=== PATIENT | female | born 1975 | race Caucasian/White ===

== ENCOUNTER 2023-06-28 19:41 | Emergency (ER) | payer OTHER, SELFPAY ==
[2023-06-28 19:46] VITALS: BP 161/79; PULSE 65; RESP 16; TEMP 36.2; O2SAT 98
--- NOTE | 2023-06-28 19:54 | ED.GENADULT ---
HPI - General Adult General Chief complaint: Upper Respiratory Infection Stated complaint: Headache/Dizziness/Sinus Pressure Source: patient Mode of arrival: ambulatory Limitations: no limitations History of Present Illness HPI narrative: Patient presents for evaluation of sick symptoms for last 2-3 days. She reports pressure behind both eyes and is wondering whether she has a sinus infection. Denies any discharge from the nares per se. She has a scratchy throat, an occasional cough, pressure in both ears with left worse than the right, and some body aches. No fever, chills, vomiting, diarrhea. Her also has similar symptoms. She does not smoke. She took Tylenol for symptoms which seemed to help. However she has recurrence of her symptoms shortly thereafter. Related Data Home Medications Medication Instructions Recorded Confirmed apixaban 5 mg tablet (Eliquis) mg 06/28/23 atorvastatin 40 mg tablet mg 06/28/23 flecainide 100 mg tablet mg 06/28/23 fluoxetine 40 mg capsule mg 06/28/23 losartan 25 mg tablet mg 06/28/23 metoprolol succinate 50 mg mg PO 06/28/23 tablet,extended release 24 hr Allergies Allergy/AdvReac Type Severity Reaction Status Date / Time doxycycline Allergy Unknown RASH Verified 06/11/19 11:27 Sulfa (Sulfonamide Allergy Unknown MOUTH SORES Verified 06/11/19 11:27 Antibiotics) Latex, Natural Rubber Allergy Unknown Verified 06/28/23 19:55 Review of Systems Review of Systems: CONSTITUTIONAL: Denies fever, chills, or sweats. EYES: Denies visual changes, redness, or discharge. ENT: Reports sinus congestion pressure behind the eyes. Reports scratchy throat. Reports pressure in both ears, left greater than the right. CARDIOVASCULAR: Denies chest pain, palpitations, or edema. RESPIRATORY: Reports occasional cough. Denies shortness of breath. GASTROINTESTINAL: Denies abdominal pain, nausea, vomiting, or diarrhea. GENITOURINARY: Denies dysuria or hematuria. SKIN: Denies rash or itching. MUSCULOSKELETAL: Denies back pain, joint pain, or myalgia. NEUROLOGIC: Denies headache, numbness, dizziness, or weakness. PSYCHIATRIC: Denies anxiety or depression. [facility] Past Medical History Medical History (Updated 06/28/23 @ 20:06 by Nathan Bruno, ASSOCIATE ART DIRECTOR, ) Atrial fibrillation Surgical History Surgical History No pertinent past surgical history Family History Family History Mother Family history non-contributory Social History Social History Substance use: never Living arrangements: with family Gender identity (if verbalized by the patient): Female Sexual Orientation (if Verbalized by the Patient): Straight or Heterosexual Spiritual care concerns: No Exam Narrative: GENERAL: Well-appearing, well-nourished, and in no acute distress. HEAD: Normocephalic, atraumatic. EYES: PERRLA and EOMI. ENT: Nares clear, no rhinorrhea or epistaxis. Mucous membranes moist. Oropharynx without tonsillar hypertrophy exudate or other lesions. Bilateral tympanic membrane erythema with left TM bulging NECK: Supple. No adenopathy or masses. No carotid bruits or JVD CHEST: Clear to auscultation. No respiratory distress. No wheezes rales or rhonchi HEART: Regular rate and rhythm. No murmur heard. Normal peripheral pulses. ABDOMEN: Soft, nontender, nondistended, normal active bowel sounds. EXTREMITIES: Normal range of motion. No edema. SKIN: Warm, dry, no rash. NEURO: No focal deficits. Alert and oriented x3. PSYCH: Normal mood and affect. Course Course Emergency Course: This is a 47-year-old female who presented for evaluation of sick symptoms. COVID and influenza were negative. She has evidence of otitis media on exam. Will treat with Augmentin. Increase hydration. [id number] agents for
== END 2023-06-28 20:07 | disposition home or self-care (01) ==
PROVIDERS: Emergency Provider Nurse Practitioner; PCP Family Medicine
DX: H66.92 Otitis media, unspecified, left ear (principal); Z20.822 Contact with and (suspected) exposure to COVID-19; I48.91 Unspecified atrial fibrillation
CPT/HCPCS: 87426; 87804; 99203; C9803; G0463

== ENCOUNTER 2024-09-20 15:28 | Emergency (ER) | payer BC, OTHER, SELFPAY ==
[2024-09-20 15:47] VITALS: BP 133/61; PULSE 55; RESP 16; TEMP 36.6; O2SAT 99
--- NOTE | 2024-09-20 15:52 | ED_ITS ---
HPI - URI/Sore Throat General Chief Complaint: Upper Respiratory Infection Stated Complaint: throat Time Seen by Provider: 09/20/24 15:51 Source: patient and RN notes reviewed Mode of arrival: ambulatory Limitations: no limitations History of Present Illness HPI Narrative: 48-year-old female presents with concern for sore throat swollen glands for about a week. 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 She denies fever, chills, sweats. Reports body aches. MD elicited complaint: sore throat Related Data Home Medications ?Medication ?Instructions ?Recorded ?Confirmed ?Last Taken ?Type apixaban 5 mg tablet (Eliquis) mg 06/28/23 Unknown History atorvastatin 40 mg tablet mg 06/28/23 Unknown History flecainide 100 mg tablet mg 06/28/23 Unknown History fluoxetine 40 mg capsule mg 06/28/23 Unknown History losartan 25 mg tablet mg 06/28/23 Unknown History metoprolol succinate 50 mg mg PO 06/28/23 Unknown History tablet,extended release 24 hr Allergies Allergy/AdvReac Type Severity Reaction Status Date / Time doxycycline Allergy Unknown RASH Verified 06/11/19 11:27 Sulfa (Sulfonamide Allergy Unknown MOUTH SORES Verified 06/11/19 11:27 Antibiotics) Latex, Natural Rubber Allergy Unknown Verified 06/28/23 19:55 Review of Systems Review of Systems: CONSTITUTIONAL: Denies malaise, chills, sweats, or fever. EYES: Denies visual changes, redness, or discharge. ENT: Denies rhinorrhea, congestion, sinus pain, otalgia. Reports sore throat. CARDIOVASCULAR: Denies chest pain, palpitations, or edema. RESPIRATORY: Denies cough. Denies dyspnea. GASTROINTESTINAL: Denies abdominal pain, nausea, vomiting, diarrhea SKIN: Denies rash or itching. MUSCULOSKELETAL: Reports myalgia. NEUROLOGIC: Denies headache. All systems reviewed & are unremarkable except as noted in HPI and below PMFSH Past Medical History Medical History (Updated 09/20/24 @ 16:00 by Siomara Sparks NP) Atrial fibrillation Surgical History Surgical History No pertinent past surgical history Family History Family History Mother Family history non-contributory Social History Social History Substance use: never Living arrangements: with family Gender identity (if verbalized by the patient): Female Sexual Orientation (if Verbalized by the Patient): Straight or Heterosexual Spiritual care concerns: No Comments At time of signature, agree with nursing past medical, surgical, social and family history. There is no relevant family history pertinent to the presenting complaint Exam Narrative: GENERAL: Well-appearing, well-nourished, and in no acute distress. HEAD: Normocephalic EYES: PERRLA, conjunctivae clear ENT: Nares clear. Mucous membranes moist. TM pearly rosales with sharp light reflex bilaterally; no tragal tenderness. Oropharynx erythematous without lesions. Tons ils enlarged and without exudate, no drooling, no hoarseness, no trismus, uvula midline. NECK: Supple. No lymphadenopathy CHEST: Clear to auscultation, breath sounds equal. No wheezing, rhonchi, rales, or stridor. No respiratory distress, speaks in full sentences. HEART: Regular rate and rhythm. No murmur heard. SKIN: Warm, dry, no rash. NEURO: Alert and oriented x3. PSYCH: Normal mood and affect Course Course Emergency Course: Patient is aware of diagnosis, understands and agrees to treatment plan. Anticipatory guidance given. Patient agrees to follow-up as directed and is aware of reasons to seek care at the emergency department. Portions of this record may have been created with voice recognition software Level of Care: Express Care Visit Vital Signs Vital signs: Vital Signs Temperature 98 F 09/20/24 15:47 Pulse Rate 55 L 09/20/24 15:47 Respiratory Rate 16 09/20/24 15:47 Blood Pressure 133/61 09/20/24 15:47 Pulse Oximetry 99 09/20/24 15:47 Oxygen Delivery Room Air 09/20/24 15:47 Temperature 98 F 09/20/24 15:47 Pulse Rate 55 L 09/20/24 15:47 Respiratory Rate 16 09/20/24 15:47 Blood Pressure 133/61 09/20/24 15:47 Pulse Oximetry 99 09/20/24 15:47 Oxygen Delivery Room Air 09/20/24 15:47 Reviewed. MDM - URI/Sore Throat MDM Narrative Medical decision making narrative: Differential diagnosis considered: Hernandez virus, strep pharyngitis, allergic rhinitis, upper respiratory tract infection, sinusitis, rhinosinusitis, nasopharyngitis. viral pharyngitis, otitis media, otitis externa, pneumonia, bronchitis, viral cough syndrome, viral syndrome, and influenza. Exam findings show no acute concerns or changes; patient is non-toxic appearing and is in no distress. Patient is appropriate for outpatient treatment and follow-up. Lab Data Attestation: I reviewed the patient's lab results. Critical Care Time Critical Care Time Critical Care Time: No Discharge Plan Discharge Clinical Impression: Upper respiratory infection Patient Disposition: Home, Self-Care Condition: Stable Instructions: Upper Respiratory Infection (ED) Additional Instructions: Your rapid strep swab was negative today at [facility]. A throat culture will be sent to the laboratory for further testing. If the test is positive, you will receive a phone call within 48 hours and an appropriate antibiotic will be initiated at that time. Your symptoms are likely due to a viral illness, which is not treated with antibiotics. Viral symptoms can be present for up to a few weeks. -Alternate Tylenol and Motrin per package directions for fever or pain. -Antihistamine medication such as Benadryl at night and Zyrtec during the day can help improve symptoms. -Eat and drink things that are easy to swallow, like tea or soup, or popsicles to suck on. -Oral rinses such as: Salt water gargles and/or may use topical anesthetic (eg. Chloraseptic spray) or lozenges to relieve dryness or throat pain). -Frequent hand washing or hand beer brewer is one of the best ways to prevent spread of infection. -Follow up with primary care provider in 2-3 days if condition is not improving; or seek ER visit if you have trouble breathing, cannot drink enough fluids, have muffled voice, difficulty opening your mouth, or severe swelling. Patient Language: Amharic Prescriptions: No Action fluoxetine 40 mg capsule atorvastatin 40 mg tablet metoprolol succinate 50 mg tablet extended release 24 hr PO losartan 25 mg tablet flecainide 100 mg tablet Eliquis 5 mg tablet amoxicillin-pot clavulanate 875-125 mg tablet 1 tablet PO Q12H Qty: 20 0RF Follow-up/Referrals: Freddie,Tapan Ruiz MD [Primary Care Provider] - Stand Alone Forms: Work/School Release IP Time of Disposition: 16:00
[2024-09-20 15:59] LABS: EDSTREPNEGPOS1 Negative (Negative)
== END 2024-09-20 16:05 | disposition home or self-care (01) ==
PROVIDERS: Emergency Provider Nurse Practitioner; PCP Family Medicine
DX: J06.9 Acute upper respiratory infection, unspecified (principal); I48.91 Unspecified atrial fibrillation
CPT/HCPCS: 87081; 87880; 99213; G0463